=== PATIENT | male | born 1975 ===

== ENCOUNTER 2021-12-26 23:05 | Emergency (ER) | payer OTHER ==
[2021-12-26] MEDS ORDERED: HYDROmorphone 2 MG/ML SDV IM ONE (23:14)
[2021-12-26] MEDS ORDERED: Ondansetron 4 MG Tab.DIS PO ONE (23:14)
== END 2021-12-27 00:30 | disposition home or self-care (01) ==
LOC: LB.ED 23:05
DX: G43.911 Migraine, unspecified, intractable, with status migrainosus (principal)
CPT/HCPCS: 82947; 96372; 99283; J1170; Q0162